=== PATIENT | female | born 1935 | race Caucasian/White ===

== ENCOUNTER → 2019-07-29 | Outpatient (CLI) | payer MEDICARE ==
--- NOTE | 2019-07-29 12:17 | Diagnostic Imaging Report ---
INDICATION: Lumbar spine pain. COMPARISON: None available. TECHNIQUE: Three radiographs of the lumbar spine dated July 29, 2019. FINDINGS: Mild reversed S-shaped curvature of the visualized thoracolumbar spine. Five lumbar type vertebral bodies are present. Postsurgical changes are identified at the L4-L5 level with right-sided pedicle screws in place and interbody disc device also in place. No evidence of hardware complication. 4 mm anterolisthesis of L4 on L5. 4 mm retrolisthesis of L3 on L4. 6 mm retrolisthesis of L2 on L3. No acute vertebral body compression deformity. Severe multilevel disc space height loss is noted throughout nearly every level within the lumbar spine. This is associated with advanced endplate degenerative changes, greatest at L2-L3. Multilevel small anterior osteophyte formation. The sacroiliac joints are intact. Electronic device is identified overlying the right flank region. Leads are seen extending into the subcutaneous tissues though not definitively extending into the central spinal canal. Scattered facet joint degenerative changes, greatest within the mid lumbar spine. Extensive vascular calcifications. IMPRESSION: Postsurgical changes within the lower lumbar spine without evidence of hardware complication. Minimal anterolisthesis and retrolisthesis within the mid to lower lumbar spine, favored to be degenerative in nature. Advanced multilevel degenerative changes, particularly at L2-L3. Dictated by: Dictated on workstation # [id number]
== END ==
LOC: RAD FS 11:17
PROVIDERS: ATTEND Family Medicine
DX: M47.816 Spondylosis without myelopathy or radiculopathy, lumbar region (principal); Z98.890 Other specified postprocedural states
CPT/HCPCS: 72100

== ENCOUNTER → 2019-08-23 | Outpatient (CLI) | payer MEDICARE | LOC: CARD 10:56 | PROVIDERS: ATTEND Family Medicine | DX: I08.2 Rheumatic disorders of both aortic and tricuspid valves (principal) | CPT/HCPCS: 93306 ==

== ENCOUNTER → 2019-11-09 | Outpatient (CLI) | payer MEDICARE ==
[2019-11-09 11:29] LABS: HEMATOCRIT 37 % (35-52); HEMOGLOBIN 12.1 G/DL (11.5-16.0); MEAN CORPUSCULAR HEMOGLOBIN 31 PG (25-34); MEAN CORPUSCULAR VOLUME 95 FL (80-99)
[2019-11-09 11:30] LABS: BASOPHILS # (AUTO) 0.1 10^3/uL (0.0-0.1); BASOPHILS % (AUTO) 2 % (0-10); EOSINOPHILS # (AUTO) 0.3 10^3/uL (0.0-0.3); EOSINOPHILS % (AUTO) 6 % (0-10); LYMPHOCYTES # (AUTO) 0.9 X 10^3 (1.0-4.0); LYMPHOCYTES % (AUTO) 18 % (12-44); MEAN CORPUSCULAR HGB CONC 33 G/DL (32-36); MEAN PLATELET VOLUME 10.2 FL (7.4-10.4); MONOCYTES # (AUTO) 0.5 X 10^3 (0.0-1.0); MONOCYTES % (AUTO) 11 % (0-12); NEUTROPHILS # (AUTO) 3.1 X 10^3 (1.8-7.8); NEUTROPHILS % (AUTO) 63 % (42-75); PLATELET COUNT 276 10^3/uL (130-400)
[2019-11-09 12:29] LABS: CALCIUM 10.4 MG/DL (8.5-10.1); CREATININE SERUM 1.64 MG/DL (0.60-1.30)
[2019-11-09 12:30] LABS: ALBUMIN 4.4 GM/DL (3.2-4.5); BILIRUBIN,TOTAL 0.4 MG/DL (0.1-1.0)
== END ==
LOC: LAB FS 10:29
PROVIDERS: ATTEND Family Medicine
DX: E78.5 Hyperlipidemia, unspecified (principal)
CPT/HCPCS: 36415; 80053; 80061; 85025

== ENCOUNTER → 2020-04-10 | Outpatient (CLI) | payer MEDICARE ==
[2020-04-10 10:55] LABS: HEMATOCRIT 37 % (35-52); HEMOGLOBIN 12.2 G/DL (11.5-16.0); MEAN CORPUSCULAR HEMOGLOBIN 30 PG (25-34); MEAN CORPUSCULAR HGB CONC 33 G/DL (32-36); MEAN CORPUSCULAR VOLUME 93 FL (80-99); MEAN PLATELET VOLUME 10.1 FL (7.4-10.4); PLATELET COUNT 291 10^3/uL (130-400); RED CELL DISTRIBUTION WIDTH 13.2 % (10.0-14.5); WHITE BLOOD COUNT 5.3 10^3/uL (4.3-11.0)
[2020-04-10 10:56] LABS: BASOPHILS # (AUTO) 0.1 10^3/uL (0.0-0.1); BASOPHILS % (AUTO) 1 % (0-10); EOSINOPHILS # (AUTO) 0.4 10^3/uL (0.0-0.3); EOSINOPHILS % (AUTO) 7 % (0-10); LYMPHOCYTES % (AUTO) 19 % (12-44); MONOCYTES # (AUTO) 0.6 X 10^3 (0.0-1.0); MONOCYTES % (AUTO) 10 % (0-12); NEUTROPHILS # (AUTO) 3.3 X 10^3 (1.8-7.8); NEUTROPHILS % (AUTO) 62 % (42-75)
[2020-04-10 14:57] LABS: ALBUMIN 4.2 GM/DL (3.2-4.5); POTASSIUM 5.1 MMOL/L (3.6-5.0)
[2020-04-10 14:58] LABS: CALCIUM 10.3 MG/DL (8.5-10.1)
[2020-04-10 14:59] LABS: TOTAL PROTEIN 7.1 GM/DL (6.4-8.2)
[2020-04-10 15:01] LABS: BILIRUBIN,TOTAL 0.4 MG/DL (0.1-1.0)
[2020-04-10 15:03] LABS: CREATININE SERUM 1.67 MG/DL (0.60-1.30)
== END ==
LOC: LAB FS 10:13
PROVIDERS: ATTEND Family Medicine
DX: E78.5 Hyperlipidemia, unspecified (principal)
CPT/HCPCS: 36415; 80053; 80061; 85025

== ENCOUNTER → 2020-04-14 | Outpatient (CLI) | payer MEDICARE ==
--- NOTE | 2020-04-14 11:33 | Diagnostic Imaging Report ---
EXAMINATION: Left shoulder at 1117h. INDICATION: Fell shoulder pain 3 views were obtained. There are no prior studies for comparison. There is no fracture, dislocation or acute bony abnormality evident. There is fairly severe degenerative disease involving the glenohumeral and acromioclavicular joints. Furthermore the space between the acromion and humeral head is narrowed and I suspect the rotator cuff has been at least partially if not completely torn. There is a 4.6 x 6.5 cm soft tissue density lying immediately superior to the acromioclavicular joint. This is of uncertain etiology and could represent either a solid mass, cyst or hematoma. If further imaging is desired, then MRI would be recommended. Ultrasound could also provide additional information regarding this finding. IMPRESSION: 1. 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 2. The soft tissue density along the superior margin of the acromioclavicular joint is of uncertain etiology. Considerations and recommendations as above. Dictated by: Dictated on workstation # [id number]
== END ==
LOC: RAD FS 11:10
PROVIDERS: ATTEND Family Medicine
DX: M19.012 Primary osteoarthritis, left shoulder (principal); W19.XXXA Unspecified fall, initial encounter
CPT/HCPCS: 73030

== ENCOUNTER → 2020-10-05 | Outpatient (CLI) | payer MEDICARE ==
[2020-10-05 15:00] LABS: BUN/CREATININE RATIO 16; CREATININE SERUM 1.42 MG/DL (0.60-1.30); GFR ESTIMATED 35; GLUCOSE 101 MG/DL (70-105)
[2020-10-05 15:01] LABS: ALANINE AMINOTRANSFERASE 17 U/L (0-55); ALBUMIN 4.6 GM/DL (3.2-4.5); ALKALINE PHOSPHATASE 128 U/L (40-136); BILIRUBIN,TOTAL 0.4 MG/DL (0.1-1.0); CALCIUM 10.4 MG/DL (8.5-10.1); TOTAL PROTEIN 7.2 GM/DL (6.4-8.2)
[2020-10-05 15:18] LABS: CARBON DIOXIDE 25 MMOL/L (21-32); CHLORIDE 107 MMOL/L (98-107); POTASSIUM 4.8 MMOL/L (3.6-5.0); SODIUM 142 MMOL/L (135-145)
[2020-10-06 15:11] LABS: CHOLESTEROL 192 MG/DL (< 200); HDL CHOLESTEROL 85 MG/DL (40-60); TRIGLYCERIDES 99 MG/DL (<150); VLDL CHOLESTEROL 20 MG/DL (5-40)
== END ==
LOC: LAB FS 13:51
PROVIDERS: ATTEND Family Medicine
DX: E78.5 Hyperlipidemia, unspecified (principal)
CPT/HCPCS: 36415; 80053; 80061

== ENCOUNTER → 2020-10-23 | Outpatient (CLI) | payer MEDICARE ==
--- NOTE | 2020-10-23 11:07 | Diagnostic Imaging Report ---
INDICATION: Mass in the left shoulder. TECHNIQUE: Sonographic interrogation of an area of mass in the left shoulder was performed. FINDINGS: There is a large complex appearing fluid collection at this location measuring 8.3 x 5.5 x 7.9 cm. No internal vascularity is present. No other abnormalities are seen. IMPRESSION: Complex fluid collection at the area of interest in the left shoulder. An MRI with and without IV contrast would be useful for better characterization. Dictated by: Dictated on workstation # [id number]
== END ==
LOC: RAD FS 09:41
PROVIDERS: ATTEND Family Medicine
DX: M25.812 Other specified joint disorders, left shoulder (principal); M79.89 Other specified soft tissue disorders
CPT/HCPCS: 76881

== ENCOUNTER → 2020-11-07 | Outpatient (CLI) | payer MEDICARE | LOC: RAD 12:35 | PROVIDERS: ATTEND Family Medicine | DX: M25.812 Other specified joint disorders, left shoulder (principal) ==

== ENCOUNTER → 2021-03-23 | Outpatient (CLI) | payer MEDICARE ==
[~2021-03-23] MED LIST: ACET-2267 PO; AMLO-251 PO; ASPI-999 PO; MULT-1029 PO; NAPR220T66 PO; OMEG1CAP24 PO; PANT40TA52 PO; PARO20TA5 PO; VIT1CAPS5 PO
--- NOTE | 2021-03-23 15:57 | Diagnostic Imaging Report ---
EXAMINATION: Chest 2 view HISTORY: Shortness of breath COMPARISON: None available. FINDINGS: There is reverse right total shoulder arthroplasty. There is fusion of the lumbar spine. There is no edema or pneumonia. No pleural effusion or pneumothorax. Heart size is normal. IMPRESSION: 1. Clear lungs. Dictated by: Dictated on workstation # [id number]
[2021-03-23 16:10] LABS: WHITE BLOOD COUNT 6.6 10^3/uL (4.3-11.0)
[2021-03-23 16:11] LABS: MEAN CORPUSCULAR HEMOGLOBIN 20 PG (25-34)
[2021-03-23 16:12] LABS: HEMATOCRIT 18 % (35-52)
[2021-03-23 16:13] LABS: BASOPHILS % (AUTO) 1 % (0-10); EOSINOPHILS % (AUTO) 3 % (0-10); LYMPHOCYTES % (AUTO) 19 % (12-44); MEAN CORPUSCULAR HGB CONC 28 G/DL (32-36); MEAN CORPUSCULAR VOLUME 71 FL (80-99); MEAN PLATELET VOLUME 9.6 FL (7.4-10.4); MONOCYTES % (AUTO) 15 % (0-12); NEUTROPHILS % (AUTO) 60 % (42-75); PLATELET COUNT 458 10^3/uL (130-400)
[2021-03-23 16:15] LABS: SMEAR SCAN COMMENT YES
[2021-03-23 16:16] LABS: BASOPHILS # (AUTO) 0.1 10^3/uL (0.0-0.1); EOSINOPHILS # (AUTO) 0.2 10^3/uL (0.0-0.3); LYMPHOCYTES # (AUTO) 1.3 X 10^3 (1.0-4.0)
[2021-03-23 16:20] LABS: ALBUMIN 4.3 GM/DL (3.2-4.5); BILIRUBIN,TOTAL 0.3 MG/DL (0.1-1.0); CALCIUM 10.3 MG/DL (8.5-10.1); CREATININE SERUM 1.61 MG/DL (0.60-1.30); POTASSIUM 4.9 MMOL/L (3.6-5.0); TOTAL PROTEIN 6.8 GM/DL (6.4-8.2)
[2021-03-23 16:30] LABS: BASOPHILS % (MANUAL) 1 %; EOSINOPHILS % (MANUAL) 3 %; LYMPHOCYTES % (MANUAL) 22 %; MONOCYTES % (MANUAL) 10 %; MYELOCYTES % 1 %; NEUTROPHILS % (MANUAL) 63 %; NUCLEATED RED BLOOD CELLS 1; PLATELET ESTIMATE INCREASED; RBC MORPH ABNORMAL
[2021-03-23 16:31] LABS: ANISOCYTOSIS MARKED; ELLIPT/OVALOCYTES SLIGHT; HYPOCHROMASIA MARKED; MICROCYTOSIS MODERATE; POIKILOCYTOSIS MODERATE; POLYCHROMASIA SLIGHT; TARGET CELLS SLIGHT; TEAR DROP CELLS SLIGHT
[2021-03-23 16:32] LABS: SCHISTOCYTES SLIGHT
== END ==
LOC: LAB FS 15:20
PROVIDERS: ATTEND Family Medicine
DX: N18.30 Chronic kidney disease, stage 3 unspecified (principal); R06.02 Shortness of breath
CPT/HCPCS: 36415; 71046; 80053; 84443; 85007; 85027

== ENCOUNTER 2021-03-24 09:18 | Inpatient (IN) | payer MEDICARE ==
[~2021-03-24] VITALS: Ht 162.5 cm; Wt 94.3 kg
[2021-03-24 09:48] LABS: WHITE BLOOD COUNT 4.3 10^3/uL (4.3-11.0)
[2021-03-24 09:49] LABS: BASOPHILS # (AUTO) 0.1 10^3/uL (0.0-0.1); BASOPHILS % (AUTO) 1 % (0-10); EOSINOPHILS # (AUTO) 0.3 10^3/uL (0.0-0.3); EOSINOPHILS % (AUTO) 6 % (0-10); HEMATOCRIT 18 % (35-52); HEMOGLOBIN 4.9 G/DL (11.5-16.0); LYMPHOCYTES # (AUTO) 1.1 X 10^3 (1.0-4.0); LYMPHOCYTES % (AUTO) 26 % (12-44); MEAN CORPUSCULAR HEMOGLOBIN 20 PG (25-34); MEAN CORPUSCULAR HGB CONC 28 G/DL (32-36); MEAN CORPUSCULAR VOLUME 72 FL (80-99); MEAN PLATELET VOLUME 10.1 FL (7.4-10.4); MONOCYTES # (AUTO) 0.6 X 10^3 (0.0-1.0); MONOCYTES % (AUTO) 14 % (0-12); NEUTROPHILS # (AUTO) 2.2 X 10^3 (1.8-7.8); NEUTROPHILS % (AUTO) 52 % (42-75); PLATELET COUNT 418 10^3/uL (130-400)
--- NOTE | 2021-03-24 10:01 | ED General ---
General Chief Complaint: General Problems/Pain Stated Complaint: LOW HEMOGLOBIN Source of Information: Patient Exam Limitations: No Limitations History of Present Illness Date Seen by Provider: Mar 24, 2021 Time Seen by Provider: 09:22 Initial Comments Here with report of low hemoglobin from blood test yesterday. Apparently she had outpatient blood test and hemoglobin noted to be 5. Her doctor called to try to let her know and recommend she go to the hospital. She did not answer the phone. Ultimately she called EMS and police for welfare check. Patient was resting comfortably in her bed when EMS arrived. She does admit that she did not answer her phone all the time because of worries for scams. She does admit to recent increasing shortness of air especially with activity. Denies blood in her stool. Denies blood in her urine. Did have episode similar to this several years ago when she was traveling when she had weakness and found to have a low hemoglobin and they thought that she may have had a GI bleed. They did not find anything at that time and she has done well until recently. Does admit that the shortness of breath has increased over the last several weeks to months. No current chest pain, vomiting, fever or chills. Denies other concerns. Timing/Duration: 1 Day, Other (Getting worse over the last several weeks with shortness of breath) Severity: Mild, Moderate Associated Systoms: No Chest Pain, No Cough, No Fever/Chills, No Nausea/Vomiting; Shortness of Air, Weakness Allergies and Home Medications Allergies Coded Allergies: No Known Drug Allergies (Unverified , 03/24/21) Patient Home Medication List Home Medication List Reviewed: Yes Review of Systems Review of Systems Constitutional: see HPI; No chills; dizziness; No fever; weakness EENTM: No nose congestion, No throat pain Respiratory: No cough; dyspnea on exertion Cardiovascular: No chest pain, No edema Gastrointestinal: No abdominal pain, No diarrhea, No melena Genitourinary: no symptoms reported Musculoskeletal: No back pain, No muscle pain Skin: No lesions, No rash Psychiatric/Neurological: Denies Headache; Weakness All Other Systems Reviewed Negative Unless Noted: Yes Past Ayliaqs-Cppjhu-Trseyu Hx Patient Social History Tobacco Use?: No Substance use?: No Alcohol Use?: No Past Medical History Surgeries: Yes Orthopedic Respiratory: No Cardiac: Yes High Cholesterol, Hypertension Neurological: No Gastrointestinal: Yes Gastroesophageal Reflux, Gastrointestinal Bleed Psychosocial: Yes Depression Family Medical History Reviewed Nursing Family Hx No Pertinent Family Hx Physical Exam Vital Signs Vital Signs - First Documented 03/24/21 09:20 Temp 36.3 Pulse 74 Resp 18 B/P (MAP) 150/67 (94) Pulse Ox 96 O2 Delivery Room Air Capillary Refill : Height, Weight, BMI Height: '" Weight: lbs. oz. kg; BMI Method: General Appearance: No Apparent Distress, WD/WN HEENT: PERRL/EOMI, Pharynx Normal, Pale Conjunctivae (L), Pale Conjunctivae (R) Neck: Full Range of Motion, Supple Respiratory: Lungs Clear, Normal Breath Sounds Cardiovascular: Regular Rate, Rhythm, No Murmur Gastrointestinal: Non Tender, Soft Rectal: No Hemorrhoids, No Mass, No Tenderness Back: Normal Inspection, No CVA Tenderness, No Vertebral Tenderness Extremity: Normal Range of Motion, Non Tender Neurologic/Psychiatric: Alert, Oriented x3 Skin: Normal Color, Warm/Dry Progress/Results/Core Measures Suspected Sepsis SIRS Temperature: Pulse: Respiratory Rate: Laboratory Tests 03/24/21 09:35: White Blood Count 4.3 Blood Pressure / Mean: Laboratory Tests 03/24/21 09:35: Creatinine 1.54H, Platelet Count 418H, Total Bilirubin 0.3 Results/Orders Lab Results Laboratory Tests Test 03/24/21 09:35 Range/Units White Blood Count 4.3 4.3-11.0 10^3/uL Red Blood Count 2.46 L 4.35-5.85 10^6/uL Hemoglobin 4.9 *L 11.5-16.0 G/DL Hematocrit 18 *L 35-52 % Mean Corpuscular Volume 72 L 80-99 FL Mean Corpuscular Hemoglobin 20 L 25-34 PG Mean Corpuscular Hemoglobin Concent 28 L 32-36 G/DL Red Cell Distribution Width 19.8 H 10.0-14.5 % Platelet Count 418 H 130-400 10^3/uL Mean Platelet Volume 10.1 7.4-10.4 FL Immature Granulocyte % (Auto) 1 % Neutrophils (%) (Auto) 52 42-75 % Lymphocytes (%) (Auto) 26 12-44 % Monocytes (%) (Auto) 14 H 0-12 % Eosinophils (%) (Auto) 6 0-10 % Basophils (%) (Auto) 1 0-10 % Neutrophils # (Auto) 2.2 1.8-7.8 X 10^3 Lymphocytes # (Auto) 1.1 1.0-4.0 X 10^3 Monocytes # (Auto) 0.6 0.0-1.0 X 10^3 Eosinophils # (Auto) 0.3 0.0-0.3 10^3/uL Basophils # (Auto) 0.1 0.0-0.1 10^3/uL Immature Granulocyte # (Auto) 0.0 0.0-0.1 10^3/uL Sodium Level 138 135-145 MMOL/L Potassium Level 4.6 3.6-5.0 MMOL/L Chloride Level 106 98-107 MMOL/L Carbon Dioxide Level 21 21-32 MMOL/L Anion Gap 11 5-14 MMOL/L Blood Urea Nitrogen 26 H 7-18 MG/DL Creatinine 1.54 H 0.60-1.30 MG/DL Estimat Glomerular Filtration Rate 32 BUN/Creatinine Ratio 17 Glucose Level 121 H 70-105 MG/DL Calcium Level 10.2 H 8.5-10.1 MG/DL Corrected Calcium 10.1 8.5-10.1 MG/DL Total Bilirubin 0.3 0.1-1.0 MG/DL Aspartate Amino Transf (AST/SGOT) 18 5-34 U/L Alanine Aminotransferase (ALT/SGPT) 11 0-55 U/L Alkaline Phosphatase 94 40-136 U/L Total Protein 6.6 6.4-8.2 GM/DL Albumin 4.1 3.2-4.5 GM/DL My Orders Orders - SWETHA ARCINIEGA MD Cbc With Automated Diff (03/24/21 09:33) Comprehensive Metabolic Panel (03/24/21 09:33) Red Cells Leukocytes Reduced (03/24/21 09:33) Ed Iv/Invasive Line Start (03/24/21 09:33) Type And Screen (03/24/21 09:33) Ns Iv 500 Ml (Sodium Chloride 0.9%) (03/24/21 10:15) Vital Signs/I&O 03/24/21 03/24/21 09:20 10:20 Temp 36.3 36.4 Pulse 74 Resp 18 B/P (MAP) 150/67 (94) Pulse Ox 96 O2 Delivery Room Air Capillary Refill : Progress Note : Progress Note Seen and evaluated. IV, labs and type and cross for 2 units. We have O- blood available here at this to location. We will initiate 1 unit of O- if hemoglobin is what it stated. Monitor patient. 1003: Hemoglobin is 4.9. We will go ahead and give 1 unit of O- blood now. Hemoccult is negative. Monitor patient. 1057: 1 unit of O- blood transfusing now. I did discuss the case with Dr. Patiño and she accepts patient for admission, inpatient status. I did discuss the case with Dr. Henley at 08/25/2002. He accepts patient in consult. We will maintain n.p.o. status. Patient is DNR. Her family was updated by nursing. Departure Communication (Admissions) Time/Spoke to Admitting Phy: 10:57 Time/Spoke to Consulting Phy: 11:03 Impression Primary Impression: Profound anemia Qualified Codes: D64.9 - Anemia, unspecified Disposition: 30 STILL A PATIENT Condition: Stable Admissions Decision to Admit Reason: Admit from ER (General) Decision to Admit/Date: Mar 24, 2021 Time/Decision to Admit Time: 10:57 Departure-Patient Inst. Referrals: JOANN HANSEN MD (PCP/Family) Primary Care Physician SWETHA ARCINIEGA MD Mar 24, 2021 10:00
[2021-03-24 10:11] LABS: BILIRUBIN,TOTAL 0.3 MG/DL (0.1-1.0); CALCIUM 10.2 MG/DL (8.5-10.1); CREATININE SERUM 1.54 MG/DL (0.60-1.30); POTASSIUM 4.6 MMOL/L (3.6-5.0)
[2021-03-24 10:12] LABS: ALBUMIN 4.1 GM/DL (3.2-4.5); TOTAL PROTEIN 6.6 GM/DL (6.4-8.2)
[2021-03-24] MEDS ORDERED: NS IV 500 ML 500 ML IV ONE (10:15)
[2021-03-24 15:46] VITALS: BP 172/73
[2021-03-24] MEDS ORDERED: ONDANSETRON 4 MG/2 ML (SDV) Z0FRAN IV PRN (16:00)
[2021-03-24] MEDS ORDERED: FUROSEMIDE 40 MG/4 ML INJ (LASIX) IV ONE (16:00)
[2021-03-24] MEDS ORDERED: NS IV 500 ML 500 ML ONE (16:49)
[2021-03-24] MEDS ORDERED: NS 500 ML IV BAG IV ONE (17:00)
[2021-03-24 17:55] VITALS: BP 147/67
[2021-03-24 18:15] VITALS: BP 137/63
[2021-03-24 20:00] VITALS: BP 127/56
[2021-03-24] MEDS ORDERED: MELATONIN 3 MG TABLET PO PRN (20:15)
[2021-03-24] MEDS ORDERED: ACETAMINOPHEN 325 MG TABLET PO PRN (20:15)
[2021-03-24] MEDS ORDERED: ANTACID SUSP 30 ML UDC (MYLANTA) PO PRN (20:15)
[2021-03-24] MEDS ORDERED: PANTOPRAZOLE 40 MG (PROTONIX) VIAL IV ONE (20:15)
[2021-03-24] MEDS ORDERED: MILK OF MAGNESIA 400 MG/5 ML 30 ML UDC PO PRN (20:15)
[2021-03-24] MEDS ORDERED: BENZONATATE 100 MG (TESSALON) CAPSULE PO PRN (20:15)
[2021-03-24 21:20] VITALS: BP 173/77
[2021-03-25] VITALS (16 sets, daily range): BP systolic 134–180; BP diastolic 62–90
[2021-03-25 05:59] LABS: BASOPHILS # (AUTO) 0.1 10^3/uL (0.0-0.1); BASOPHILS % (AUTO) 2 % (0-10); EOSINOPHILS # (AUTO) 0.3 10^3/uL (0.0-0.3); EOSINOPHILS % (AUTO) 7 % (0-10); HEMATOCRIT 23 % (35-52); LYMPHOCYTES # (AUTO) 0.9 X 10^3 (1.0-4.0); LYMPHOCYTES % (AUTO) 21 % (12-44); MEAN CORPUSCULAR HEMOGLOBIN 23 pg (25-34); MEAN CORPUSCULAR HGB CONC 30 g/dL (32-36); MEAN CORPUSCULAR VOLUME 76 fL (80-99); MEAN PLATELET VOLUME 10.1 fL (9.0-12.2); MONOCYTES # (AUTO) 0.6 X 10^3 (0.0-1.0); MONOCYTES % (AUTO) 13 % (0-12); NEUTROPHILS # (AUTO) 2.3 X 10^3 (1.8-7.8); NEUTROPHILS % (AUTO) 56 % (42-75); PLATELET COUNT 392 10^3/uL (130-400); WHITE BLOOD COUNT 4.2 10^3/uL (4.3-11.0)
[2021-03-25 06:08] LABS: HEMOGLOBIN 6.9 g/dL (11.5-16.0)
[2021-03-25 06:27] LABS: CALCIUM 9.7 MG/DL (8.5-10.1); CREATININE SERUM 1.31 MG/DL (0.60-1.30); POTASSIUM 4.2 MMOL/L (3.6-5.0)
[2021-03-25] MEDS ORDERED: NS IV 500 ML 500 ML IV SCH (06:30)
[2021-03-25] MEDS: PARoxetine 20 MG (PAXIL) TAB PO SCH (09:17)
[2021-03-25] MEDS: PANTOPRAZOLE 40 MG (PROTONIX) VIAL IV SCH (09:18)
--- NOTE | 2021-03-25 10:12 | Consultation - Surgery ---
History of Present Illness History of Present Illness Patient Consulted On(farideh/time) 03/25/21 10:05 Time Seen by Provider: 09:51 History of Present Illness Surgery asked to consult regarding profound anemia. HPI per ED: Here with report of low hemoglobin from blood test yesterday. Apparently she had outpatient blood test and hemoglobin noted to be 5. Her doctor called to try to let her know and recommend she go to the hospital. She did not answer the phone. Ultimately she called EMS and police for welfare check. Patient was resting comfortably in her bed when EMS arrived. She does admit that she did not answer her phone all the time because of worries for scams. She does admit to recent increasing shortness of air especially with activity. Denies blood in her stool. Denies blood in her urine. Did have episode similar to this several years ago when she was traveling when she had weakness and found to have a low hemoglobin and they thought that she may have had a GI bleed. They did not find anything at that time and she has done well until recently. Does admit that the shortness of breath has increased over the last several weeks to months. No current chest pain, vomiting, fever or chills. Denies other concerns. Timing/Duration: 1 Day, Other (Getting worse over the last several weeks with shortness of breath) Severity: Mild, Moderate Associated Systoms: No Chest Pain, No Cough, No Fever/Chills, No Nausea/Vomiting; Shortness of Air, Weakness When I spoke to the pt and her daughter in-law this am, she stated she felt great; much better than she had been. Daughter in-law states the pt has been feeling weak for a couple of months but was ignoring it because she thought she would get better. They think she might have been diagnosed with bleeding ulcer 3 years ago on a trip to [place]. Pt states she was taking meds, but stopped them. Pt also doesn't remember if they "did scopes". Allergies and Home Medications Allergies Coded Allergies: No Known Drug Allergies (Unverified , 03/24/21) Patient Home Medication List Home Medication List Reviewed: Yes Past Swqgide-Elpsdg-Ucfoke Hx Patient Social History Smoking Status: Never a Smoker Alcohol Use?: No Have you traveled recently?: No Surgeries History of Surgeries: Yes Surgeries: Orthopedic (2 knee surgeries, spinal surgery and spinal stimulator implant) Respiratory History of Respiratory Disorde: No Cardiovascular History of Cardiac Disorders: Yes Cardiac Disorders: High Cholesterol, Hypertension Neurological History of Neurological Disord: No Genitourinary History of Genitourinary Disor: No Gastrointestinal History of Gastrointestinal Di: Yes Gastrointestinal Disorders: Gastroesophageal Reflux, Gastrointestinal Bleed Musculoskeletal History of Musculoskeletal Dis: Yes Musculoskeletal Disorders: Degenerate Disk Disease, Arthritis Endocrine History of Endocrine Disorders: No HEENT History of HEENT Disorders: Yes HEENT Disorders: Cataract Loss of Vision: Denies Hearing Impairment: Denies Cancer History of Cancer: No Psychosocial History of Psychiatric Problem: Yes Behavioral Health Disorders: Depression Family Medical History Significant Family History: Heart Disease (both parents, but in their late 80's), Cancer (her aunt had cancer), Diabetes (denies) Review of Systems-General Constitutional: malaise, weakness EENTM: No blurred vision, No double vision, No mouth swelling, No epistaxis Respiratory: No cough; dyspnea on exertion, short of breath Cardiovascular: No chest pain, No palpitations Gastrointestinal: No abdominal pain, No melena, No nausea, No vomiting Genitourinary: No dysuria, No frequency, No hematuria Musculoskeletal: back pain, joint pain, joint swelling, muscle pain, muscle stiffness Skin: No change in color, No change in hair/nails Psychiatric/Neurological: Denies Anxiety; Depressed; Denies Seizure, Denies Tremors Other pt denies any hx of abnormal bruising or bleeding Physical Exam-General Problems Physical Exam Vital Signs Vital Signs - First Documented 03/24/21 09:20 Temp 36.3 Pulse 74 Resp 18 B/P (MAP) 150/67 (94) Pulse Ox 96 O2 Delivery Room Air Capillary Refill : Less Than 3 Seconds General Appearance: WD/WN, no apparent distress Eyes: Bilateral Eye PERRL, Bilateral Eye EOMI HEENT: pharynx normal; No scleral icterus (R), No scleral icterus (L); pale conjunctivae (R), pale conjunctivae (L) Neck: non-tender, supple Respiratory: lungs clear, normal breath sounds, no respiratory distress, no accessory muscle use Cardiovascular: regular rate, rhythm, no murmur Gastrointestinal: non tender, soft, no organomegaly Back: no CVA tenderness, vertebral tenderness Extremities: non-tender, no calf tenderness, normal capillary refill Neurologic/Psychiatric: well reactivator operator II-XII nml as tested, alert, normal mood/affect, oriented x 3 Skin: warm/dry, pallor Lymphatic: no adenopathy (neck, axilla or groin) Data Review Labs Laboratory Tests 03/25/21 05:14: White Blood Count 4.2L, Red Blood Count 3.01L, Hemoglobin 6.9*L, Hematocrit 23L, Mean Corpuscular Volume 76L, Mean Corpuscular Hemoglobin 23L, Mean Corpuscular Hemoglobin Concent 30L, Red Cell Distribution Width 20.7H, Platelet Count 392, Mean Platelet Volume 10.1, Immature Granulocyte % (Auto) 0, Neutrophils (%) (Auto) 56, Lymphocytes (%) (Auto) 21, Monocytes (%) (Auto) 13H, Eosinophils (%) (Auto) 7, Basophils (%) (Auto) 2, Neutrophils # (Auto) 2.3, Lymphocytes # (Auto) 0.9L, Monocytes # (Auto) 0.6, Eosinophils # (Auto) 0.3, Basophils # (Auto) 0.1, Immature Granulocyte # (Auto) 0.0, Sodium Level 142, Potassium Level 4.2, Chloride Level 111H, Carbon Dioxide Level 22, Anion Gap 9, Blood Urea Nitrogen 20H, Creatinine 1.31H, Estimat Glomerular Filtration Rate 38, BUN/Creatinine Ratio 15, Glucose Level 91, Calcium Level 9.7 Assessment/Plan Assessment/Plan Assessment/Plan Profound Anemia, Iron deficiency Pt has already received blood transfusion (I believe 3 units of PRBCs) and is feeling better, IV fluids and IS. I recommended pt have an EGD to check for source of anemia; especially in light of probable history of previous GI bleed with stomach as most likely source. Will get consent for EGD and do that today, pt has been NPO since midnight. Discussed risks and complications with pt; not limited to pain, bleeding, infection, and even esophageal perforation. All questions answered to her satisfaction. ALEXANDER OLIVA DO Mar 25, 2021 10:12
--- NOTE | 2021-03-25 10:56 | History & Physical-Hospitalist ---
History of Present Illness HPI/Chief Complaint Pt is an 86yoCF HTN, HLD who presented to the ER due to anemia. She states she was seen by her PCP 03/23 and had been feeling weak and short of breath. She had blood work done and her hemoglobin was found to 5. Dr Hansen attempted to call her with no answer yesterday to get her to be seen in the ER. patient reports this was just because she was sleeping in on the weekend. Dr Hansen decided to call emergency services for a welfare check due to anemia and her inability to get a hodl of her. Patient reports she woke up to the fire department and police banging on her door. She denies any dark or bloody stools. She reports she has not had a period in many, many years. She had a previous episode and they were unable to find a source of her bleeding then. She reports feeling better today and was mostly just short of breath and easily fatigued prior to today. Source: patient Date Seen 03/25/21 Time Seen by a Provider: 10:50 Attending Physician Angelica Patiño MD PCP Mary Hansen MD Referring Physician Date of Admission Mar 24, 2021 at 15:00 Home Medications & Allergies Home Medications Reviewed patient Home Medication Reconciliation performed by pharmacy medication reconciliations environmental field services technician and/or nursing. Patients Allergies have been reviewed. Allergies Allergies Coded Allergies No Known Drug Allergies (Unverified03/24/21) Past Xjukhfp-Avkkev-Lhztko Hx Patient Social History Marrital Status: Employed/Student: retired Tobacco Use?: No Smoking Status: Never a Smoker Substance use?: No Alcohol Use?: No Pt feels they are or have been: No Immunizations Up To Date First/Initial COVID19 Vaccinat: SEPTEMBER 30, 2020 Second COVID19 Vaccination Michael: NOVEMBER 28, 2020 Current Status status: No status: No Advance Directives: No Primary Language: Gabonese Preferred Spoken Language: Gabonese Sensory deficits: Hearing impairment Past Medical History Surgeries: Orthopedic (2 knee surgeries, spinal surgery and spinal stimulator implant) High Cholesterol, Hypertension Gastroesophageal Reflux, Gastrointestinal Bleed Degenerate Disk Disease, Arthritis Cataract Loss of Vision: Denies Hearing Impairment: Denies Depression Family Medical History Reviewed Nursing Family Hx Heart Disease (both parents, but in their late 80's), Cancer (her aunt had cancer), Diabetes (denies) Review of Systems Constitutional: No chills, No fever; malaise EENTM: no symptoms reported Respiratory: No cough; dyspnea on exertion, short of breath Cardiovascular: No chest pain, No edema, No palpitations Gastrointestinal: No abdominal pain, No constipation, No diarrhea, No hematemesis, No melena, No nausea, No vomiting Genitourinary: No decreased output, No hematuria Musculoskeletal: no symptoms reported Skin: no symptoms reported Psychiatric/Neurological: No Symptoms Reported Physical Exam Physical Exam Vital Signs Vital Signs - First Documented 03/24/21 09:20 Temp 36.3 Pulse 74 Resp 18 B/P (MAP) 150/67 (94) Pulse Ox 96 O2 Delivery Room Air Capillary Refill : Less Than 3 Seconds Height, Weight, BMI Height: '" Weight: lbs. oz. kg; 35.71 BMI Method: General Appearance: No Apparent Distress, WD/WN, Obese HEENT: PERRL/EOMI, Moist Mucous Membranes; No Scleral Icterus (L), No Scleral Icterus (R) Neck: Normal Inspection, Supple Respiratory: Lungs Clear, No Accessory Muscle Use, No Respiratory Distress Cardiovascular: Regular Rate, Rhythm, No JVD, Systolic Murmur Gastrointestinal: Normal Bowel Sounds, Non Tender, Soft Extremity: Normal Capillary Refill, No Calf Tenderness, No Pedal Edema Neurologic/Psychiatric: Alert, Oriented x3, Normal Mood/Affect Skin: Normal Color, Warm/Dry Results Results/Procedures Labs Laboratory Tests 03/24/21 09:35 03/25/21 05:14 Patient resulted labs reviewed. Assessment/Plan Admission Diagnosis Severe Anemia Admission Status: Inpatient Order (span 2 midnights) Reason for Inpatient Admission: see below Assessment and Plan Severe Anemia presumed GI bleed but FOBT was actually negative yesterday Plan for EGD today Continue PPI Hgb from 4.9 to 6.9 this AM after 2 units pRBCs Will transfuse 1 more unit Surgery consulted, appreciate recs Will check iron panel If EGD unrevealing will get peripheral smear and consider hematology consult I discussed case with Dr Hansen yesterday to let her know patient was ok and being admitte HTN HLD No acute needs Continue home meds DVT ppx: SCDs only Diagnosis/Problems Diagnosis/Problems (1) HLD (hyperlipidemia) (2) Hypertension (3) Profound anemia Status: Acute Qualifiers: Anemia type: unspecified type Qualified Codes: D64.9 - Anemia, unspecified Copy Copies To 1: MARY HANSEN MD, KATELYN M MD Mar 25, 2021 10:56
[2021-03-25] MEDS ORDERED: LACTATED RINGERS 1,000 ML IV ONE ×2 (10:58→11:00)
[2021-03-25] MEDS ORDERED: HURRICAINE EXT TUBE (BENZOCAINE) XX PRN (11:00)
[2021-03-25] MEDS ORDERED: PROPOFOL INJECTION 50 ML IV ONE (12:48)
--- NOTE | 2021-03-25 13:13 | Progress Note-Post Operative ---
Post-Operative Progess Note Surgeon (s)/Seismograph Shooter (s) Surgeon ALEXANDER OLIVA DO Seismograph Shooter: none Pre-Operative Diagnosis Profound Anemia Post-Operative Diagnosis Gastric ulcer Large Hiatal hernia Procedure & Operative Findings Date of Procedure 03/25/21 Procedure Performed/Findings PROCEDURE NOTE: After informed consent was obtained, the patient was brought to the endoscopy suite, placed in bed in left lateral decubitus position. She was administered IV sedation by the PRODUCTION CHECKER who then monitored vitals the entire time, heart rate, blood pressure and pulse ox and the scope was inserted down the mouth through the esophagus into the stomach. On the way down, did not see any esophagitis, pushed into the stomach and pushed past the antrum into the duodenum. Able to get to second or third portion of the duodenum; looked good. Pulled back and noted a gastric ulcer; took a picture and did a biopsy of this right near the antrum. Then retroflexed the scope, saw a large hiatal hernia, took a picture of this and then pulled the scope into the GE junction, took another picture of the hiatal hernia and then looked closely at the GE junction; no changes at the Z- line, therefore did not do a biopsy. Pushed the scope back into the stomach, suctioned all the air out of the stomach. At this point pulled the scope up the esophagus and out the mouth. The patient tolerated the procedure, and she recovered in endoscopy suite. Anesthesia Type IV sedation by PRODUCTION CHECKER Estimated Blood Loss Estimated blood loss (mL): scant Specimens/Packing Specimens Removed biopsy of ulcer near antrum body of stomach bx ALEXANDER OLIVA DO Mar 25, 2021 13:13
[2021-03-25] MEDS ORDERED: HURRICAINE EXT TUBE (BENZOCAINE) ONE (14:58)
[2021-03-25] MEDS ORDERED: NS IV 500 ML 500 ML ONE (19:59)
[2021-03-26 03:43] VITALS: BP 120/74
[2021-03-26 06:41] LABS: HEMATOCRIT 30 % (35-52); HEMOGLOBIN 8.9 g/dL (11.5-16.0); MEAN CORPUSCULAR HEMOGLOBIN 23 pg (25-34); MEAN CORPUSCULAR HGB CONC 29 g/dL (32-36); MEAN CORPUSCULAR VOLUME 79 fL (80-99); PLATELET COUNT 388 10^3/uL (130-400); WHITE BLOOD COUNT 6.1 10^3/uL (4.3-11.0)
[2021-03-26 07:06] LABS: POTASSIUM 4.3 MMOL/L (3.6-5.0)
[2021-03-26 07:07] LABS: CALCIUM 10.1 MG/DL (8.5-10.1)
[2021-03-26 07:11] LABS: CREATININE SERUM 1.63 MG/DL (0.60-1.30)
[2021-03-26 08:04] VITALS: BP 184/80
[2021-03-26 08:33] VITALS: BP 165/69
[2021-03-26] MEDS: PANTOPRAZOLE 40 MG (PROTONIX) VIAL IV SCH (08:50)
[2021-03-26] MEDS: PARoxetine 20 MG (PAXIL) TAB PO SCH (08:51)
--- NOTE | 2021-03-26 08:53 | Physical Therapy Evaluation ---
PT Evaluation-General Medical Diagnosis Admission Date Mar 24, 2021 at 15:00 Medical Diagnosis: profound anemia Onset Date: Mar 24, 2021 Therapy Diagnosis Therapy Diagnosis: debility/weakness Precautions Precautions/Isolations: Fall Prevention, Standard Precautions Referral Physician: Justice Reason for Referral: Evaluation/Treatment Medical History Pertinent Medical History: HTN Current History EMS secondary to critical Hgb of 4.9 Reviewed History: Yes Social History Home: Single Level Current Living Status: Alone Entry Into Home: Stairs With Railing PT Steps Into Home: 4 Prior Prior Level of Function SCALE: Activities may be completed with or without assistive devices. 5-Gzaxzmlxjt-pxttzkb completes the activity by him/herself with no assistance from a helper. 5-Set-up or Clean-up Assistance-helper sets up or cleans up; patient completes activity. [place] assists only prior to or following the activity. 4-Supervision or Touching Assistance-helper provides verbal cues and/or touching/steadying and/or contact guard assistance as patient completes activity. Assistance may be provided throughout the activity or intermittently. 3-Partial/Moderate Assistance-helper does LESS THAN HALF the effort. [place] lifts, holds or supports trunk or limbs, but provides less than half the effort. 2-Substantial/Maximal Assistance-helper does MORE THAN HALF the effort. [place] lifts or holds trunk or limbs and provides more than half the effort. 9-Rmllelbph-citdnn does ALL the effort. Patient does none of the effort to complete the activity. Or, the assistance of 2 or more helpers is required for the patient to complete the activity. If activity was not attempted, code reason: 7-Patient Refused. 9-Not Applicable-not attempted and the patient did not perform the activity before the current illness, exacerbation or injury. 10-Not Attempted due to Environmental Limitations-(lack of equipment, weather restraints, etc.). 88-Not Attempted due to Medical Conditions or Safety Concerns. Bed Mobility: 6 Transfers (B,C,W/C): 6 Gait: 6 Stairs: 6 Indoor Mobility (Ambulation): Independent Stairs: Independent Prior Devices Use: Other-see list below Prior Device Use: cane PT Evaluation-Current Subjective Patient agrees to PT. Patient reports she is going to stay with her son after dismissal from hospital. Pain Numeric Pain Scale: 0-No Pain Location: No Pain Reported Objective Patient Orientation: Normal For Age ROM/Strength ROM Lower Extremities bilateral LE WFL Strength Lower Extremities 4-/5 grossly bilateral LE Integumentary/Posture Integumentary refer to nursing notes Bowel Incontinence: No Bladder Incontinence: No Posture WFL Neuromuscular (Tone, Coordination, Reflexes) grossly intact Sensory Vision: Wears Glasses Hearing: Functional Sensation Right Lower Extremit: Intact Sensation Left Lower Extremity: Intact Transfers Roll Left to Right (QC): 6 Sit to Lying (QC): 6 Lying to Sitting/Side of Bed(Q: 6 Sit to Stand (QC): 5 Chair/Exc-je-Cdoel Xfer(QC): 5 Gait Does the Patient Walk?: Yes Mode of Locomotion: Walk Anticipated Mode of Locomotion: Walk Walk 10 feet (QC): 5 Walk 50 ft with 2 Turns(QC): 5 Walk 150 ft (QC): 5 Distance: 500' Gait Assistive Device: FWW Comments/Gait Description safe and functional. with no deviation Balance Sitting Static: Normal Sitting Dynamic: Normal Standing Static: Normal Standing Dynamic: Normal Picking up an Object (QC): 6 Assessment/Needs Patient will be seen short term to ensure safe return to home at maximum LOF. Rehab Potential: Fair PT Short Term Goals Short Term Goals Time Frame: Mar 30, 2021 Roll Left & Right: 6 Sit to lyin Lying to sitting on side of be: 6 Sit to stand: 6 Chair/gnv-zt-zyhwp transfer: 6 Toilet transfer: 6 Walk 10 feet: 6 Walk 50 feet with two turns: 6 Walk 150 feet: 6 PT Plan Treatment/Plan Treatment Plan: Continue Plan of Care Treatment Plan: Education, Functional Activity Tyson, Functional Strength, Group Therapy, Safety, Therapeutic Exercise Treatment Duration: Mar 30, 2021 Frequency: 5 times per week Estimated Hrs Per Day: .25 hour per day Patient and/or Family Agrees t: Yes Discharge Recommendations Therapy Discharge Recommendati: Home & Family Time/GCodes Time In: 830 Time Out: 842 Total Billed Treatment Time: 12 Total Billed Treatment 1 visit EVMod 12 min JORGE WATTS PT Mar 26, 2021 08:53
[2021-03-26] MEDS ORDERED: NAPR220T66 PO ×2 (09:14)
[2021-03-26] MEDS ORDERED: AMLO-251 PO (09:14)
[2021-03-26] MEDS ORDERED: PARO20TA5 PO (09:14)
[2021-03-26] MEDS ORDERED: OMEG1CAP24 PO (09:14)
[2021-03-26] MEDS ORDERED: VIT1CAPS5 PO (09:14)
[2021-03-26] MEDS ORDERED: ASPI-999 PO (09:14)
[2021-03-26] MEDS ORDERED: MULT-1029 PO (09:14)
[2021-03-26] MEDS ORDERED: amLODIPine 10 MG (NORVASC) TAB PO SCH (10:15)
--- NOTE | 2021-03-26 10:36 | Occupational Therapy Eval ---
OT Evaluation-General/PLF Medical Diagnosis Admission Date Mar 24, 2021 at 15:00 Medical Diagnosis: profound anemia Onset Date: Mar 23, 2021 Therapy Diagnosis Therapy Diagnosis: decreased activity tolerance. Precautions Precautions/Isolations: Fall Prevention, Standard Precautions Referral Physician: Justice Referral Reason: Evaluation/Treatment Medical History Pertinent Medical History: HTN Additional Medical History GERD, GI bleed, 2 knee surgeries, spinal surgery, spinal stimulator implant, art hritis Current History ED due to anemia. Pt went to PCP 03/23 due to weakness and SOB, found to have hemoglobin 5 Social History Home: Single Level Current Living Status: Alone Entry Into Home: Stairs With Railing Steps Into Home: 4 ADL-Prior Level of Function SCALE: Activities may be completed with or without assistive devices. 3-Peqallsjer-sizejjm completes the activity by him/herself with no assistance from a helper. 5-Set-up or Clean-up Assistance-helper sets up or cleans up; patient completes activity. [place] assists only prior to or following the activity. 4-Supervision or Touching Assistance-helper provides verbal cues and/or touching/steadying and/or contact guard assistance as patient completes activity. Assistance may be provided throughout the activity or intermittently. 3-Partial/Moderate Assistance-helper does LESS THAN HALF the effort. [place] lifts, holds or supports trunk or limbs, but provides less than half the effort. 2-Substantial/Maximal Assistance-helper does MORE THAN HALF the effort. [place] lifts or holds trunk or limbs and provides more than half the effort. 7-Xwdnfeueh-qlxjlw does ALL the effort. Patient does none of the effort to complete the activity. Or, the assistance of 2 or more helpers is required for the patient to complete the activity. If activity was not attempted, code reason: 7-Patient Refused. 9-Not Applicable-not attempted and the patient did not perform the activity before the current illness, exacerbation or injury. 10-Not Attempted due to Environmental Limitations-(lack of equipment, weather restraints, etc.). 88-Not Attempted due to Medical Conditions or Safety Concerns. ADL PLOF Comments Pt IND with ADLs and functional mobility at PLOF, using cane Self Care: Independent Functional Cognition: Independent DME/Equipment Comments cane OT Current Status Subjective Pt up in recliner, agreeable to OT evaluation. States she hopes to discharge today and plans to stay with family for a little bit Mental Status/Objective Patient Orientation: Person, Place, Time, Situation Current Dentures/Partials: Yes Hand Dominance: Right Upper Extremity ROM WFL, BUE shoulder flexion to approx 140 degrees Upper Extremity Coordination WFL Upper Extremity Sensation WFL Upper Extremity Strength grossly 4/5 BUEs ADL-Treatment Eating (QC): 6 (Per pt report) Oral Hygiene (QC): 6 (IND standing at sink) Toileting Hygiene (QC): 6 (IND with toileting, able to manage clothing and perform hygiene) Other Treatments Pt in recliner. OT educated pt on purpose and benefit of OT, she verbalized understanding. Pt provided information about PLOF and home set up, and participated in UE screen. Pt used FWW to perform functional mobility into bathroom and onto toilet. She completed toileting independently, then stood at sink to wash hands and complete oral care independently. Pt returned to recliner. Post tx, pt seated in recliner, call light in reach and all needs met. Nurse present with meds. Education OT Patient Education: Correct positioning, Modified ADL techniques, Progress toward Goal/Update tx plan, Purpose of tx/functional activities, Rehab process Teaching Recipient: Patient Teaching Methods: Discussion Response to Teaching: Verbalize Understanding OT Choir Singer Goals Shelter Goals 1=Demonstrate adherence to instructed precautions during ADL tasks. 2=Patient will verbalize/demonstrate understanding of assistive devices/modifi cations for ADL. 3=Patient will improve strength/tolerance for activity to enable patient to perform ADL's. OT Education/Plan Problem List/Assessment Assessment: No Skilled OT Needs ID'd Pt is currently IND with ADLs and functional mobility and is at her PLOF. No skilled OT services indicated Discharge Recommendations Plan/Recommendations: Discharge/Goals Met Treatment Plan/Plan of Care Patient would benefit from OT for education, treatment and training to promote independence in ADL's, mobility, safety and/or upper extremity function for ADL's. Plan of Care: ADL Retraining, Functional Mobility, UE Funct Exercise/Act Treatment Duration: Mar 26, 2021 Frequency: 1 time per week (eval only) Estimated Hrs Per Day: .25 hour per day Rehab Potential: Fair Time/GCodes Start Time: 10:05 Stop Time: 10:23 Total Time Billed (hr/min): 18 Billed Treatment Time 1, EVL CRUMPACKER,MARCELINO OT Mar 26, 2021 10:36
[2021-03-26 11:12] VITALS: BP 172/74
[2021-03-26] MEDS ORDERED: PANT40TA52 PO (11:41)
[2021-03-26] MEDS ORDERED: ACET-2267 PO (11:41)
--- NOTE | 2021-03-26 15:31 | Progress Note - Surgery ---
Subjective Time Seen by a Provider: 14:01 Subjective/Events-last exam Pt seen and examined, she denies abdominal and is tolerating diet. She feels stronger. Review of Systems General: Fatigue Pulmonary: No Dyspnea, No Cough Cardiovascular: No: Chest Pain, Palpitations Gastrointestinal: No: Nausea, Vomiting, Abdominal Pain Objective Exam Vital Signs Date Time Temp Pulse Resp B/P (MAP) Pulse Ox O2 Delivery O2 Flow Rate FiO2 03/26/21 11:12 36.0 63 20 172/74 (106) 96 Room Air 03/26/21 08:33 165/69 (101) 03/26/21 08:04 36.3 70 18 184/80 (114) 93 Room Air 03/26/21 08:00 Room Air 03/26/21 03:43 36.2 61 18 120/74 (89) 95 Room Air 03/25/21 23:39 36.4 64 18 136/65 (88) 97 Room Air 03/25/21 23:32 36.4 63 18 136/65 97 03/25/21 23:31 36.4 63 18 136/65 97 Room Air 03/25/21 20:32 36.3 59 20 143/62 96 Room Air 03/25/21 20:10 36.3 62 20 134/70 96 Room Air 03/25/21 20:08 Room Air 03/25/21 20:06 36.3 62 20 134/70 (91) 96 Room Air 03/25/21 15:57 36.7 60 18 159/70 (99) 96 Room Air I & O 03/26/21 07:00 Intake Total 1146 ml Output Total 2300 ml Balance -1154 ml Capillary Refill : Less Than 3 Seconds General Appearance: No Apparent Distress, WD/WN, Obese HEENT: PERRL/EOMI, Moist Mucous Membranes; No Scleral Icterus (L), No Scleral Icterus (R) Respiratory: Lungs Clear, No Accessory Muscle Use, No Respiratory Distress Cardiovascular: Regular Rate, Rhythm, Systolic Murmur Gastrointestinal: non tender, soft, no organomegaly Extremity: No Calf Tenderness, No Pedal Edema Neurologic/Psychiatric: Alert, Oriented x3, Normal Mood/Affect Skin: Normal Color, Warm/Dry Results Lab Laboratory Tests 03/25/21 21:48: Lab Scanned Report Transfusion Reaction Form 03/26/21 06:01: White Blood Count 6.1, Red Blood Count 3.86, Hemoglobin 8.9L, Hematocrit 30L, Mean Corpuscular Volume 79L, Mean Corpuscular Hemoglobin 23L, Mean Corpuscular Hemoglobin Concent 29L, Red Cell Distribution Width 21.2H, Platelet Count 388, Mean Platelet Volume 10.0, Sodium Level 144, Potassium Level 4.3, Chloride Level 110H, Carbon Dioxide Level 21, Anion Gap 13, Blood Urea Nitrogen 19H, Creatinine 1.63H, Estimat Glomerular Filtration Rate 30, BUN/Creatinine Ratio 12, Glucose Level 99, Calcium Level 10.1 Assessment/Plan Assessment/Plan Assessment/Plan Gastric Ulcer Hiatal hernia Pt had EGD which showed a chronic gastric ulcer, no active bleed and no signs of recent bleed. However, this is most likely the cause of her anemia. She will be put on PPI BID and Carafate before meals and at bedtime. She will need repeat EGD in 2-3 months; to f/u as an outpt to set that up. All questions answered to her satisfaction. ALEXANDER OLIVA DO Mar 26, 2021 15:31
--- NOTE | 2021-03-26 17:15 | Discharge Summary ---
Discharge Summary Hospital Course Was the Problem List Reviewed?: Yes Problems/Dx: (1) Gastric ulcer Qualifiers: Qualified Codes: K25.0 - Acute gastric ulcer with hemorrhage (2) Profound anemia Status: Acute Qualifiers: Qualified Codes: D64.9 - Anemia, unspecified (3) HLD (hyperlipidemia) Status: Chronic (4) Hypertension Status: Chronic Hospital Course Date of Admission: Mar 24, 2021 at 15:00 Admission Diagnosis: Acute blood loss anemia due to GI bleeding Family Physician/Provider: Joann Hansen MD Date of Discharge: 03/26/21 Discharge Diagnosis: Acute blood loss anemia due to GI bleeding caused by gastric ulcer Hospital Course: Domi Weldon is an 86-year-old female who was found to be severely anemic on outpatient lab work and was referred to the emergency room. She was found to have a hemoglobin of 4. She was transfused 3 units of PRBC and her hemoglobin improved appropriately. General surgery was consulted and performed an upper endoscopy. She was found to have a gastric ulcer, but no active bleeding. She was started on a PPI twice daily. She should have a repeat hemoglobin check in a few days. She should follow-up with Dr. Hansen in about a week. She will follow up with surgery in 2 to 3 months for a repeat endoscopy. She was set up with outpatient physical therapy. She was discharged home in stable condition. Labs and Pending Lab Test: Laboratory Tests 03/25/21 21:48: Lab Scanned Report Transfusion Reaction Form 03/26/21 06:01: White Blood Count 6.1, Red Blood Count 3.86, Hemoglobin 8.9L, Hematocrit 30L, Mean Corpuscular Volume 79L, Mean Corpuscular Hemoglobin 23L, Mean Corpuscular Hemoglobin Concent 29L, Red Cell Distribution Width 21.2H, Platelet Count 388, Mean Platelet Volume 10.0, Sodium Level 144, Potassium Level 4.3, Chloride Level 110H, Carbon Dioxide Level 21, Anion Gap 13, Blood Urea Nitrogen 19H, Creatinine 1.63H, Estimat Glomerular Filtration Rate 30, BUN/Creatinine Ratio 12, Glucose Level 99, Calcium Level 10.1 Home Meds Active Pantoprazole Sodium 40 Mg Tablet.dr 40 Mg PO BID 60 Days Tylenol Extra Strength (Acetaminophen) 500 Mg Tablet 1,000 Mg PO TID PRN 30 Days Reported Aspirin 81 Mg Tab.chew 81 Mg PO HS Preservision Areds Softgel (Vit A/C/E/Zinc/Co) 1 Cap Capsule 1 Cap PO BID [place] 3 Fish Oil Softgel ([place]-3 Fatty Acids/Fish Oil) 1 Each Capsule. 1 Each PO BID Centrum Silver Tablet (Multivit-Min/FA/Lycopene/Lut) 1 Each Tablet 1 Each PO HS Amlodipine Besylate 10 Mg Tablet 10 Mg PO DAILY Paroxetine HCl 20 Mg Tablet 20 Mg PO DAILY Assessment/Pt Instructions Take medications as prescribed. Begin taking pantoprazole twice daily. You will need lab work to check your hemoglobin in a few days. Follow-up with Dr. Hansen in about a week. You are being set up with outpatient physical therapy. Return with worsening lightheadedness, dizziness, bleeding, or if you feel like you are getting worse. Discharge Planning: <30 minutes discharge planning Discharge Instructions Discharge Diet: No Restrictions Activity as Tolerated: Yes Consultations General surgery Discharge Physical Examination Vital Signs Vital Signs Date Time Temp Pulse Resp B/P (MAP) Pulse Ox O2 Delivery O2 Flow Rate FiO2 03/26/21 11:12 36.0 63 20 172/74 (106) 96 Room Air 03/25/21 13:05 5 General Appearance: No Apparent Distress, Obese Respiratory: Lungs Clear, Normal Breath Sounds, No Respiratory Distress Cardiovascular: Regular Rate, Rhythm, No Edema, No Murmur Gastrointestinal: Normal Bowel Sounds, Non Tender, Soft Extremity: Normal Inspection, Non Tender, No Pedal Edema Skin: Normal Color, Warm/Dry Neurologic/Psychiatric: Alert, Oriented x3, No Motor/Sensory Deficits, Normal Mood/Affect Allergies: Coded Allergies: No Known Drug Allergies (Verified , 03/25/21) Copy Copies To 1: JOANN HANSEN MD Discharge Summary Date of Admission Mar 24, 2021 at 15:00 Date of Discharge Discharge Date: Mar 26, 2021 Discharge Time: 09:40 Admission Diagnosis Acute blood loss anemia due to GI bleeding Consults/Procedures Consulations General surgery Procedures EGD Discharge Diagnosis (1) Gastric ulcer Qualifiers: Qualified Codes: K25.0 - Acute gastric ulcer with hemorrhage (2) Profound anemia Status: Acute Qualifiers: Qualified Codes: D64.9 - Anemia, unspecified (3) HLD (hyperlipidemia) Status: Chronic (4) Hypertension Status: Chronic DAYANNA SAGASTUME MD Mar 26, 2021 17:14
[2021-03-26 17:18] VITALS: BP 172/74
== END 2021-03-26 17:20 | disposition home or self-care (01) | DRG 378 ==
LOC: EDUNIT# 09:18 → ER FS 09:19 → 4TH 15:00
PROVIDERS: ADMIT Family Medicine; ATTEND Family Medicine
PROC: 0DB68ZX Excision of Stomach, Via Natural or Artificial Opening Endoscopic, Diagnostic (ICD-10-PCS; principal; 2021-03-25 11:00)
DX: K25.0 Acute gastric ulcer with hemorrhage (principal); D62 Acute posthemorrhagic anemia; E78.00 Pure hypercholesterolemia, unspecified; I10 Essential (primary) hypertension; Z20.822 Contact with and (suspected) exposure to COVID-19; K21.9 Gastro-esophageal reflux disease without esophagitis; F32.9 Major depressive disorder, single episode, unspecified; D50.9 Iron deficiency anemia, unspecified; K44.9 Diaphragmatic hernia without obstruction or gangrene
CPT/HCPCS: 36415; 80048; 80053; 82728; 83540; 83550; 85025; 85027; 86850; 86900; 86901; 86920; 87081; 87636